=== PATIENT | female | born 1960 | race Hispanic/Latino ===

== ENCOUNTER 2020-05-18 23:48 | Emergency (ER) | payer OTHER ==
[2020-05-19] MEDS ORDERED: IBUPROFEN 600 MG TABLET ONE (01:04)
== END 2020-05-19 01:15 | disposition home or self-care (01) ==
LOC: EDH 23:48
DX: S43.214A Anterior dislocation of right sternoclavicular joint, initial encounter (principal); Z90.49 Acquired absence of other specified parts of digestive tract; Z98.890 Other specified postprocedural states; X50.9XXA Other and unspecified overexertion or strenuous movements or postures, initial encounter; Y93.89 Activity, other specified; Y92.89 Other specified places as the place of occurrence of the external cause; Y99.8 Other external cause status
CPT/HCPCS: 71045; 73000